=== PATIENT | male | born 1975 | race African-American/Black ===

== ENCOUNTER 2025-03-22 02:05 | Inpatient (IN) | payer OTHER, SELFPAY ==
[2025-03-21 21:45] VITALS: BP 141/89
[2025-03-21 22:07] LABS: Hematocrit 30.8 % (39.0-52.0); Hemoglobin 10.0 g/dL (13.0-18.0); Mean Corp Hgb Conc. 32.5 g/dL (33.0-37.0); Mean Corpuscular Volume 84.6 fL (80.0-94.0); Nucleated Red Blood Cells % 0 % (-); Platelet Count 310 10^3/uL (130-400); Red Cell Dist. Width 13.8 % (11.5-14.5)
[2025-03-21 22:35] LABS: ALT (SGPT) 28 U/L (0-50); AST (SGOT) 25 U/L (17-59); Albumin 3.7 g/dl (3.5-5.0); Alkaline Phosphatase 138 U/L (38-126); Blood Urea Nitrogen 26 mg/dl (9-20); Calcium 9.3 mg/dl (8.4-10.2); Carbon Dioxide 31 mmol/L (22-30); Chloride 101 mmol/L (98-107); Glucose 274 mg/dl (70-99); Potassium 4.1 mmol/L (3.5-5.1); Sodium 136 mmol/L (135-145); Total Protein 6.8 g/dl (6.3-8.2); eGFR > 60.00
--- NOTE | 2025-03-21 23:55 | ED.GENMED ---
History of Present Illness
General
Chief Complaint: Skin Problem
Source: patient
Time Seen by Provider: 03/21/25 23:23
History of Present Illness
History of Present Illness:
Note:
CHIEF COMPLAINT(S)
Swelling and potential infection of the left foot.
HISTORY OF PRESENT ILLNESS
The patient is a 49-year-old male with a history of diabetes who presented with swelling and concern of infection in the left foot. The patient reports that he has noticed a progressive worsening of swelling and a recent increase in drainage from
the left foot. He describes having a crevice and open wounds on the lateral aspect of the left foot, with the dressing showing some drainage today. The patient denies fever. He mentions that for the right foot, he has chronic wounds that heal
intermittently but have never fully resolved, with notable ulcerations on the distal lateral aspect. He has been using a silver-containing cream on the foot, which might have caused the skin to appear raw and loose. His blood glucose levels are
reported to be high on occasion, fluctuating throughout the day, typically peaking around 6 PM.
The patients sister, who works at the hospital, encouraged him to seek care. The patient manages his diabetes with insulin and wears a Freestyle Feroz sensor to monitor his glucose levels. The patient notes he has been under podiatric care at [facility] and an pelt shearer at [place], but often his primary care physician deals with his diabetes. His last x-rays were tonight for the assessment of his foot condition.
PAST MEDICAL AND SURIGICAL HISTORY
Diabetes mellitus, primarily managed by the primary care physician due to limited hours of the pelt shearer.
ALLERGIES
Shellfish allergy, specifically to cold shellfish.
SOCIAL DETERMINANTS AFFECTING HEALTH
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
MEDICATIONS
The patient uses insulin and Monjaro (likely misspelling for Mounjaro) for diabetes management.
PHYSICAL EXAM
General: Alert, no acute distress.
Skin: Bilateral foot wounds; left foot with swelling and drainage to the lateral aspect of the foot with no significant surrounding cellulitis, right foot with ulcerations medially and 2 larger ulcerations to the lateral distal aspect of the foot,
normal bilateral dorsalis pedis pulses
Cardiovascular: Good blood supply to the feet. No respiratory distress
Psychiatric: Cooperative, appropriate mood & affect.
Neuro exam: Cranial nerves intact no focal motor deficits
PROBLEM LIST
- Acute: Swelling and potential infection of the left foot.
- Underlying diabetic foot ulceration.
- Acute hyperglycemia
PLAN
- Obtain x-rays of both feet to evaluate for potential bone infection.
- Admission for hospital observation and management, including IV antibiotics to address potential infection and reduce the risk of progression to osteomyelitis.
- Consult wound management and podiatry to determine appropriate wound care strategies.
- Continue monitoring blood glucose levels and adjust insulin therapy as needed.
- Consider long-term strategies in collaboration with podiatry and endocrinology to address foot care and diabetes management.
DIFFERENTIAL DIAGNOSIS
The Differential Diagnosis includes, in no particular order and is not limited to:
- Diabetic foot ulcers
- Cellulitis
- Osteomyelitis
- Peripheral vascular disease
- Charcot foot
- Neuropathic ulcer
- Venous stasis ulcer
- Contact dermatitis from topical treatments
- Lymphedema
- Gout
Disposition:
SUMMARY OF ENCOUNTER
The patient, a 49-year-old male with insulin-dependent diabetes, presented to the emergency department with worsening swelling of the left foot and drainage indicative of a potential diabetic foot infection. Laboratory analysis showed leukocytosis
with a white blood cell count of 13,000 and hyperglycemia with a blood glucose level of 274. Hemoglobin was recorded at 10. Chemistry panel displayed normal creatinine and liver function tests. A foot X-ray showed soft tissue swelling but no bony
changes. The patient was treated with broad-spectrum antibiotics to cover potential infectious agents and monitored with IV fluids. The patient will require further evaluation by podiatry and likely wound care services. Hospital admission was chosen
for closer observation and administration of IV antibiotics.
DISPOSITION
Admit for IV antibiotics.
ASSESSMENT
The patient presents with potential diabetic foot infection, evidenced by left foot swelling and drainage. The risk of the condition progressing to osteomyelitis is being evaluated through further imaging if required.
MANAGEMENT OF THE PATIENTS CARE WAS DISCUSSED WITH
Case reviewed with hospitalists for admission and ongoing care evaluation.
PLAN
- Administer broad-spectrum IV antibiotics to cover possible bacterial infections.
- Admit the patient for monitoring and potential further imaging, such as a bone scan or MRI, to rule out osteomyelitis if clinical suspicion remains high.
INDEPENDENT REVIEW OF LABS AND INTERPRETATION OF TESTS
- My independent review of the CBC shows leukocytosis with a white cell count of 13,000.
- My independent review of the chemistry panel shows hyperglycemia with a blood glucose level of 274.
- My independent interpretation of the foot X-ray indicates soft tissue swelling with no bony changes in the left foot.
MEDICAL DECISION MAKING
- Number and Complexity of Problems Addressed: Chronic conditions affecting care [Diabetes mellitus]. Differential diagnosis includes diabetic foot ulcers, cellulitis, osteomyelitis, peripheral vascular disease, Charcot foot, neuropathic ulcer,
venous stasis ulcer, contact dermatitis from topical treatments, lymphedema, and gout.
- Data:
Category 1:
- Reviewed CBC showing leukocytosis and chemistry panel displaying hyperglycemia.
- Independently interpreted foot X-ray showing soft tissue swelling.
Category 3:
- Case management and admission discussed with hospitalists for continuous IV antibiotics and further evaluation.
- Risk: Prescription drug management was prescribed and initiated with IV antibiotics to address potential infection given the patients chronic diabetes, foot ulcerations, and potential for progression to osteomyelitis. Consideration for further
imaging if necessary to evaluate bone involvement.
DIAGNOSIS
- Diabetic foot ulcer (ICD-10: E11.621)
- Cellulitis of the left foot (ICD-10: L03.116)
- Acute hyperglycemia
Phy Exam
Physical Exam
Physical Exam:
.
Sepsis
Sepsis Screening
Sepsis Assessment: Sepsis Ruled Out
Sepsis Screen
Sepsis Screen: Sepsis Ruled Out
Date: 03/22/25
Time: 01:55
Course
Orders/Labs/Results
Orders:
Orders
03/21/25 21:50
CR Foot - Left Min 3 Views Urgent
Comment:
Reason For Exam: wound with swelling, r/o osteo
03/21/25 22:01
Complete Blood Count/With Diff Urgent
Comprehensive Metabolic Panel Urgent
Lactate Level [Lactic Acid] Urgent
03/21/25 23:56
Piperacillin/Tazo 3.375 Gram [Zosyn] 3.375 gram in 50 ml IV NOW
03/21/25 23:57
Vancomycin [Vancocin] 2,000 mg 0.9% Sodium Chloride 500 ml [Nss] 500 ml IV NOW
03/22/25 00:01
Vital Signs- Treatment ONCE
Frequency: Once
0.9% Sodium Chloride 1000 ml [Nss] 1,000 ml IV BOLUS
03/22/25 01:33
Admit/Transfer Patient As Directed
Co-Sign Provider:
Level of Care: Inpatient admission
Assign to:: Medical/Surgical
Physician / Group: [facility]
Diagnosis: diabetic foot infection
Reason for Hospitalization: foot infection
Expected length of stay greater than two midnights?: Yes
ELOS- Estimated Length of Stay in days: 2
I certify the patient meets the requirements for IP care: Yes
PRN Pain Medication Management As Directed
May give lesser potent ordered pain med per pt: Yes
preference::
Protocol:: Medication orders for pain may be administered in a
manner that supports deferring to patient preference
when the pt is:
- Requesting an ordered lesser potent pain medication.
Least to most potent pain medications are defined
as: acetaminophen < NSAID < tramadol < opioids
(morphine, oxycodone, hydromorphone).
- Requesting a lesser dose of the same medication IF
ORDERED.
- Requesting a less intrusive route of administration
if both routes are prescribed by the provider (PO <
IV).
03/22/25 01:34
Code Status As Directed
Resuscitation Status: Full Code
03/22/25 01:38
Nadolol [Corgard] 10 mg PO ONCE STA
03/22/25 01:39
0.9% Sodium Chloride 500 ml [Nss] 500 ml IV BOLUS
Abnormal Lab Results
03/21/25
22:01
WBC 13.6 H 10^3/uL
(4.8-10.8)
RBC 3.64 L 10^6/uL
(4.70-6.10)
Hgb 10.0 L g/dL
(13.0-18.0)
Hct 30.8 L %
(39.0-52.0)
MCHC 32.5 L g/dL
(33.0-37.0)
Abs Immat Gran (auto) 0.1 H 10^3/uL
(0-0.05)
Absolute Neuts (auto) 9.8 H 10^3/uL
(1.4-6.5)
Absolute Monos (auto) 1.7 H 10^3/uL
(0.1-0.6)
Lymphocytes % 14.0 L %
(20.5-51.1)
Monocytes % 12.3 H %
(1.7-9.3)
Carbon Dioxide 31 H mmol/L
(22-30)
BUN 26 H mg/dl
(9-20)
Glucose 274 H mg/dl
(70-99)
Alkaline Phosphatase 138 H U/L
(38-126)
03/21/25 22:01
03/21/25 22:01
Vital Signs
Initial and Last Documented VS:
Initial Vital Signs
Temp Pulse Resp BP Pulse Ox
98.3 F 114 20 141/89 95
03/21/25 21:45 03/21/25 21:45 03/21/25 21:45 03/21/25 21:45 03/21/25 21:45
Last Documented Vital Signs
Temp Pulse Resp BP Pulse Ox
99.1 F 114 18 173/97 99
03/22/25 00:52 03/22/25 00:12 03/22/25 00:12 03/22/25 00:07 03/22/25 00:06
*Pulse Oximetry
SaO2: 95
Oxygen Mode of Delivery: Room air
Patient hypoxic: no
*Critical Care Note
Total Time (30-74mins, 75-104mins- exclusive of procedures): Not Applicable
ED Attending Note
-
Portions of this chart may have been created with voice recognition software.� Occasional wrong word or��sound alike� substitutions may have occurred due to the inherent limitations of voice recognition software.
Discharge Plan
Departure
Patient Disposition: Admit
Date of Disposition: 03/21/25
Time of Disposition: 23:55
Admit to: Med/Surg
Presentation/result/management discussed w/ accepting MD/DO: Hospitalist
Discharge Problem:
Diabetic infection of left foot, Acute hyperglycemia, Leukocytosis, diabetic foot wounds
Prescriptions:
No Action
amlodipine 5 mg Tablet
5 mg PO DAILY
oxycodone-acetaminophen [Percocet] 5-325 mg Tablet
1 tab PO TID
losartan 100 mg Tablet
100 mg PO DAILY
Repatha Syringe 140 mg/mL Syringe
120 mg SC Q2W
Patient Comments:
The patient did show this RN the text from [facility].
Mounjaro 15 mg/0.5 mL Pen Injector
15 mg SC QWEEK
Interventions
Interventions:
*Risk Screen - Suicide Last Done: 03/21/25 21:45
*General Assessment Last Done: 03/21/25 21:45
*Neglect/Abuse Screening Last Done: 03/21/25 21:45
*ED- Fall Risk Assessment Last Done: 03/22/25 00:13
*ED COVID-19 Vaccine History Last Done: 03/22/25 00:13
Discharge Date and Time
Print Language: WOLOF
[2025-03-22] VITALS (9 sets, daily range): BP systolic 124–173; BP diastolic 72–97; BMI 26.0
[2025-03-22] MEDS: NSS 1000 IV ×2 (00:24→04:31)
[2025-03-22] MEDS: ZOSYN 50 IV (00:25)
--- NOTE | 2025-03-22 01:12 | HPS.HSE ---
Family Physician
-
Family Physician: NOT KNOW UNKNOWN - PT DOES
Chief Complaint
-
Foot infection
History of Present Illness
This is a [id number] male with past medical history significant for insulin-dependent diabetes on Mounjaro and short acting insulin, hypertension, hyperlipidemia and chronic tachycardia syndrome who presents to the emergency department with
swelling in the left foot concerning for an infection.
Patient reports intermittent blisters in his foot and occasional swelling due to amlodipine. He states that he really did not notice any changes until about 2 days ago. He started having some drainage from the blisters in his left foot. However
today he noticed significant swelling and redness.
He denies any known injury. He does have diabetic neuropathy and follows with podiatry at [facility] but he only sees residents there. He is primary care physician takes care of his diabetes.
He denies any fevers. He reports glucose levels have been more elevated in the last 2 days.
He has been using a silver containing cream on the foot.
In the emergency department he was hypertensive, afebrile and tachycardic to 114. Temperature was 98.1 was satting 98% on room air.
WBC was 13.6, hemoglobin 10 platelets 310. Electrolytes were normal. BUN/creatinine were normal. Glucose was 274.
X-ray of the left foot shows soft tissue swelling without changes consistent with osteomyelitis
Medical History
Past Medical History
Past Medical History: Reports HTN, Hypercholesterolemia and IDDM
Past Surgical History: Reports None
Social History
Tobacco: Smoker
Alcohol: Occasional
Family History
Family History: Not pertinent
Allergies / Home Medications
Allergies reflects when Allergies were last updated in [facility].
Home Medications with original date entered in [facility]
Allergy/Medication List:
Allergies
Allergy/AdvReac Type Severity Reaction Status Date / Time
shellfish derived Allergy Tongue Verified 03/21/25 21:45
Swelling
Home Medications
amlodipine 5 mg tablet 5 mg PO DAILY 03/22/25
evolocumab 140 mg/mL subcutaneous syringe (Repatha Syringe) 120 mg SC Q2W 03/22/25
losartan 100 mg tablet 100 mg PO DAILY 03/22/25
oxycodone-acetaminophen 5 mg-325 mg tablet (Percocet) 1 tab PO TID 03/22/25
tirzepatide 15 mg/0.5 mL subcutaneous pen injector (Mounjaro) 15 mg SC QWEEK 03/22/25
Review of Systems
-
Constitutional: Reports No Symptoms
EENT: Reports No Symptoms
Respiratory: Reports No Symptoms
Cardiac: Reports No Symptoms
Abdomen/GI: Reports No Symptoms
: Reports No Symptoms
Musculoskeletal: Reports No Symptoms
Skin: Reports Rash
Neurological: Reports No Symptoms
Endocrine: Reports No Symptoms
Hematologic/Lymphatic: Reports No Symptoms
Psych: Reports No Symptoms
Physical Exam
Vital Signs
Vital Signs
Temp Pulse Resp BP Pulse Ox
99.1 F 114 18 173/97 99
03/22/25 00:52 03/22/25 00:12 03/22/25 00:12 03/22/25 00:07 03/22/25 00:06
Physical Exam
General: Well Developed, Well Nourished and No Apparent Distress
HEENT: NormoCephalic, Moist mucous membranes and Atraumatic
Respiratory: Clear
Cardiac: S1/S2 and Tachycardia; No Murmur or Rub
GI: Soft, Non Tender, Non Distended and Normal Bowel Sounds; No Organomegaly
Rectal: Deferred by Provider
Musculoskeletal: No Clubbing, No Cyanosis, No Edema and Other (Lateral left foot swelling erythema with some drainage of pus at the opening of the wound. There is no tracking. There is mild tenderness to palpation.)
Skin: No Rash
Neuro: AO x 3 and Nonfocal/grossly intact
Psych: Calm
Laboratory Results
-
08/29/25 22:01
03/21/25 22:
Laboratory Results
Lactic Acid 1.6 mmol/L (0.7-2.0) 03/21/25 22:
Total Bilirubin 0.6 mg/dl (0.2-1.3) 03/21/25 22:
AST 25 U/L (17-59) 03/21/25 22:
ALT 28 U/L (0-50) 03/21/25 22:
Alkaline Phosphatase 138 U/L (38-126) H 03/21/25 22:
Data Reviewed
-
Diagnostic Radiology: Report Reviewed by me
Lab Data: Labs Reviewed by me
Old Records: Reviewed
Impression/Plan
-
IMPRESSION:
49-year-old male with diabetes here with diabetic foot infection. Chronic tachycardia and nonseptic at this time. No DKA elevated blood blood glucose to 200s. X-ray without osteomyelitis. No foreign body. Normal vascular examination.
PLAN:
Diabetic Foot infection - No hx of recent abx use or prolonged hospitalizations. No known MRSA hx
- admit to med/surg
- IV vanc + unasyn
- pain control
- unlikely osteo based on xray, check esr/crp
- podiatry consultation
- ID consultation
DM II - Hyperglycemia without DKA. On Mounjaro and sliding scale insulin
- continue insulin aspart 10 tidac
- moderate sliding scale insulin
- check a1c
- IV fluids for now
Tachycardia - reports hx of chronic tachycardia on nadolol 20 daily, ran out 2 days ago, possibly rebound tachycardia
- IV fluids
- restart nadolol
- check for LE dvt
DVT PPX - lovenox sq
Code status - full Code
[2025-03-22] MEDS: VANCOCIN 540 MG IV (01:25)
[2025-03-22] MEDS: CORGARD 10 MG PO (01:50)
[2025-03-22] MEDS: NSS 500 IV (01:52)
[2025-03-22] MEDS: UNASYN IV ×4 (06:48→23:29)
[2025-03-22 07:01] LABS: Hematocrit 26.9 % (39.0-52.0); Hemoglobin 8.7 g/dL (13.0-18.0); Mean Corp Hgb Conc. 32.3 g/dL (33.0-37.0); Mean Corpuscular Volume 84.6 fL (80.0-94.0); Platelet Count 291 10^3/uL (130-400); Red Cell Dist. Width 13.7 % (11.5-14.5)
[2025-03-22 07:13] LABS: Blood Urea Nitrogen 17 mg/dl (9-20); Calcium 8.0 mg/dl (8.4-10.2); Carbon Dioxide 30 mmol/L (22-30); Chloride 108 mmol/L (98-107); Estimated Creatinine Clearance > 125 ml/min; Glucose 184 mg/dl (70-99); Potassium 4.0 mmol/L (3.5-5.1); Sodium 137 mmol/L (135-145); eGFR > 60.00
[2025-03-22 07:32] LABS: D-Dimer 0.77 ug/mlFEU (0.00-0.50)
--- NOTE | 2025-03-22 08:48 | PHA.VAN.IN ---
Assessment
- Assessment
Renal Function: Appears similar to baseline
Concomitant Antimicrobials: AMPICILLIN/SULBACTAM
AUC Dosing Plan
- Dosing Variables
Dosing Weight (kg): 86.8
Dosing CrCl (ml/min): >125
Vd coefficient (L/kg): 0.7
- Empiric Dosing
Initial / Loading Dose: VANCO 2000MG
Maintenance Regimen: VANCO 1500MG Q12H
Estimated AUC (mcg*h/mL): 494
Estimated Peak (mcg*h/mL): 34.0
Estimated Trough (mcg/ml): 10.9
Estimated Half Life (H): 6.4
- Monitoring
No levels ordered at this time: CONSIDER LEVEL PRIOR TO 4TH MAINTENANCE DOSE
Pharmacokinetics Vancomycin I
- -
Patient Age: 49
Patient Sex: Male
Vancomycin Day #: 1
Indication: Skin And Soft Tissue
Requesting Provider: DR. JONES
Height / Weight:
Height 6 ft
Actual Weight 86.8 kg
Pertinent Past Medical History: DM
- Vital Signs / Lab Results
Temp Pulse Resp BP Pulse Ox
98.3 F 89 16 145/89 98
03/22/25 08:39 03/22/25 08:39 03/22/25 08:39 03/22/25 08:39 03/22/25 08:39
Lab Results - Hematology
03/21/25 03/22/25
22:01 06:48
WBC 13.6 H 10.4
Lab Results - Chemistry
03/21/25 03/22/25
22:01 06:48
BUN 26 H 17
Creatinine 1.2 0.8
Estimated Creat Clear > 125
Albumin 3.7
03/21/25
22:01
Lactic Acid 1.6
[2025-03-22] MEDS: COZAAR 100 MG PO (09:23)
[2025-03-22] MEDS: CORGARD 20 MG PO (09:23)
[2025-03-22] MEDS: NORVASC 5 MG PO (09:24)
[2025-03-22 09:36] LABS: Glucose - Point of Care 154 mg/dl (70-99)
[2025-03-22] MEDS: NOVOLOG FLEXPEN 8 UNITS SC ×3 (09:38→17:58)
[2025-03-22] MEDS: NOVOLOG FLEXPEN-MODERATE RESISTANCE 1 UNITS SC ×2 (09:38→12:37)
[2025-03-22] MEDS: VANCOCIN 530 MG IV ×2 (09:44→17:36)
--- NOTE | 2025-03-22 09:47 | EDRN ---
Dr. Francis Inf Disease in room w/pt at this time.
--- NOTE | 2025-03-22 10:09 | CON.ID ---
Consultation
-
Date/Time Consultation Requested: 03/22/2025 0351
Date/Time Consultation Performed: 03/22/2025 0957
Requesting Provider: Dr. El
Performing Provider: Dr. Francis
Reason for Consultation: Left diabetic foot infection
Chief Complaint / Past History
History of Present Illness
Juan Murry is a 49-year-old man with a significant past medical history of diabetes mellitus with neuropathy being evaluated regarding a left foot wound. History is obtained from chart review, along with patient interview.
The patient reports that he has had issues with foot wounds, and scaly skin in the past, and occasionally picks off the skin. Approximately 1-1/2 weeks ago he changed lotions to an OTC 'silver-cream' for moisturizing. He notes that approximately 2
days ago he developed a wound on the lateral aspect of his left foot (approximately base of fifth met), and it has been draining clear drainage. He notes mild discomfort, but does not feel a lot of pain secondary to underlying neuropathy. He
denies any significant pus or spreading erythema. He does admit to some left groin discomfort and swelling. He also notes he has been dealing with a right foot wound also. He follows with Podiatry at an outside facility. At the advice of his
family, he presented to the ER for further evaluation.
Past History
Additional Past Medical History:
DM with neuropathy (AcC ~ 8-9)
HTN
HLD
Additional Past Surgical History:
Right AC joint reconstruction
Testicular torsion
Femur surgery
Allergy History:
shellfish derived Allergy (Verified 03/21/25 21:45)
Tongue Swelling
Medications Reviewed: Yes
Current Antibiotics:
Unasyn 3 gm IV q.6 hours
Vancomycin
Social History
Tobacco: Non-Smoker
Alcohol: Occasional
Drug: None
Personal:
Living: With Family
Employment: Employed
Family History
Family History: Not Pertinent
Review of Systems
Vital Signs
Temp Pulse Resp BP Pulse Ox
98.8 F 79 16 129/76 97
03/22/25 09:20 03/22/25 09:24 03/22/25 09:20 03/22/25 09:24 03/22/25 09:20
Physical Exam
Physical Exam
Constitutional: No Acute Distress, Well Developed, Comfortable and Non-toxic
Head: Normocephalic
Eyes: Pupils Equal, Pupils Round, No Conjunctival Hemorrhage and Sclera Anicteric
Oral: No Thrush and No Ulcers
Cardiovascular: S1/S2; Negative S3/S4
Pulmonary: Clear; Negative Wheezes, Rales or Rhonchi
Gastrointestinal: Soft, Non Tender, Non Distended and Normal Bowel Sounds
Extremities: Other (B/L feet with crusting and superficial desquamation.); Negative Edema, Cyanosis or Erythema
Wound: Other (Left foot with lateral wound. Seropurulent drainage expressible. Right foot with lateral plantar wound with granulation tissue.)
Neurological: Awake and Alert
Psychological: Calm
Lab / Diagnostic Study Results
03/22/25 06:48
03/22/25 06:48
Abs Immat Gran (auto) 0.1 10^3/uL (0-0.05) H 03/21/25 22:01
Absolute Neuts (auto) 9.8 10^3/uL (1.4-6.5) H 03/21/25 22:01
Absolute Lymphs (auto) 1.9 10^3/uL (1.2-3.4) 03/21/25 22:01
Absolute Monos (auto) 1.7 10^3/uL (0.1-0.6) H 03/21/25 22:01
Absolute Basos (auto) 0.1 10^3/uL (0-0.2) 03/21/25 22:01
Immature Gran % 0.4 % (0-0.5) 03/21/25 22:01
Neutrophils % 71.9 % (42.2-75.2) 03/21/25 22:
Lymphocytes % 14.0 % (20.5-51.1) L 03/21/25 22:
Monocytes % 12.3 % (1.7-9.3) H 03/21/25 22:01
Eosinophils % 1.0 % (0-6) 03/21/25 22:
Basophils % 0.4 % (0-2) 03/21/25 22:
ESR 83 mm/hour (0-20) H 03/22/25 06:48
Lactic Acid 1.6 mmol/L (0.7-2.0) 03/21/25 22:
Microbiology Results
Assessment / Plan
Left draining foot wound
Diabetic foot wounds (B/L)
Leukocytosis
Anemia
Elevated ESR
DM with neuropathy
HTN
HLD
Recommendations:
Continue empiric unasyn and vanco.
I have obtained a wound culture of the left foot drainage.
Check MRI to assess for osteomyelitis given elevated ESR / CRP
Tight glycemic control for optimal leukocyte function.
Follow white count and temperature curve.
Further recommendations as additional data is returned.
Care Review
Plan reviewed with: Nurse
[2025-03-22 10:19] LABS: Glycohemoglobin (HgbA1c) 9.7 % (4.0-5.6)
--- NOTE | 2025-03-22 10:51 | EDRN ---
L foot wound culture sent to [facility] at this time
[2025-03-22] MEDS: ROXICODONE 5 MG PO ×2 (11:52→19:25)
[2025-03-22 12:01] LABS: Glucose - Point of Care 169 mg/dl (70-99)
--- NOTE | 2025-03-22 12:31 | PTCARENOTE ---
Patient arrived from ED via stretcher. IV Vancomycin infusing. OOB independently from stretcher to bed. AOO x 3. VSS. Patient complains of 6/10 left foot pain--PRN oxy administered for pain management. Wound care completed by this RN. Belongings
accounted for, including wallet, cell phone, keno clerk, clothing and glasses. Patient refused sending wallet to security. Patient oriented to room. Bed in lowest position. Call [facility] and personal belongings within reach.
--- NOTE | 2025-03-22 12:50 | W.PN.SURGUPD ---
Surgical Update
Surgical Update
49 yo M with uncontrolled diabetes presents with worsening of left foot wound and infection
-Continue IV antibiotics per ID recs
-Radiographs show no evidence of osteomyelitis or soft tissue emphysema
-Recommend obtaining left foot MRI
-Continue local wound care
-Final recommendations pending MRI findings
--- NOTE | 2025-03-22 14:27 | W.PN.HOSP.TC ---
Addendum entered and electronically signed by Anel Lugo MD 03/22/25 15:01:
Attending�addendum:
I�saw�and�evaluated�the�patient.�I�reviewed�the�resident�s�note�and�agree�with�findings�and�plan�as�documented�in�the�resident�s�note.��
�patient seen and examined at bedside, denies any chest pain or shortness of breath, no abdominal pain, no nausea, no vomiting, no diarrhea or constipation.
Physical�exam:
GENERAL : Patient is awake, alert, oriented x3
HEENT: Nonicteric sclerae, PERRLA, EOMI. Oropharynx clear. Moist mucous membranes. Conjunctivae appear well perfused.
CHEST: Chest wall is nontender.
HEART: Regular rate and rhythm without murmurs.
LUNGS: Clear to auscultation bilaterally.
ABDOMEN: Soft, positive bowel sounds, nontender, no organomegaly.
RECTAL: Deferred.
Musculoskeletal: Left foot dressed.
NEUROLOGIC: Cranial nerves II-XII intact without motor/sensory deficit.
�
Assessment/plan:
Diabetic left foot infection.
Continue antibiotic in form of vancomycin and Unasyn.
Pending MRI left foot
History�of�diabetes�mellitus
Continue�home�medication
Insulin�sliding�scale
Diabetic�diet
Hemoglobin A1c 9.7
History�of�hypertension
Continue home meds
History of hyperlipidemia
Continue�repatha
History of sinus tachycardia
Continue with nadolol.
Abnormal labs
�
CODE STATUS:�Full�code
DVT�prophylaxis:�Lovenox
Diet:�DM�diet
Family�communication: Discussed with family at bedside
Disposition: MRI foot pending.
Total�time�spent�on�today�s�encounter�was�65�minutes�which�included�time�spent�in�counseling�the�patient/family�regarding�diagnosis�and�treatment�plan�as�listed�above,�goals�of�care,�and�symptom�management.�Case�was�discussed�with�nursing�staff,�spec
ialists,�and�care�coordinators/case�management.�All�labs�and�imaging�personally�reviewed�by�me.�Remainder�the�time�spent�in�detailed�review�of�previous�records,�lab�data,�imaging,�and�other�medical�provider�documentation.
�
�
Total�time�spent�on�today�s�encounter�was�65�minutes�which�included�time�spent�in�counseling�the�patient/family�regarding�diagnosis�and�treatment�plan�as�listed�above,�goals�of�care,�and�symptom�management.�Case�was�discussed�with�nursing�staff,�spec
ialists,�and�care�coordinators/case�management.�All�labs�and�imaging�personally�reviewed�by�me.�Remainder�the�time�spent�in�detailed�review�of�previous�records,�lab�data,�imaging,�and�other�medical�provider�documentation.
Original Note:
Today's Communication/Plan
-
Left foot MRI
Continue Unasyn and vancomycin per ID
Cultures pending
Assessment / Plan
Assessment / Plan
49-year-old male presenting to the ED with infected diabetic foot infection.
Diabetic foot infection
-- Elevated WBC on admission 13.6 - now resolved
-- Admit to MedSurg
-- Continue vancomycin and Unasyn per ID
-- Cultures pending
-- Pain control
-- Left lower extremity ultrasound no DVT
-- Unlikely osteomyelitis based on x-ray, left foot MRI pending per podiatry
-- Podiatry and ID appreciated
Type 2 diabetes
-- Continue insulin aspart 8, 3 times daily AC
-- Sliding scale insulin
-- On tirzepatide at home
-- Hemoglobin A1c 9.7
Tachycardia
-- Chronic tachycardia on nadolol for treatment - ran out 2 days ago
-- Restart home nadolol
Hypertension
-- Continue home amlodipine 5 and losartan 100
Hyperlipidemia
-- On Repatha
DVT Lovenox
Full code
Anticipated Discharge: 24 - 48 hours
Subjective/Interval History
-
Date of Service: March 22, 2025
No complaints. Overall feels well.
Objective Data
-
Labs:
Laboratory Results
03/22/25
06:48
WBC 10.4
Hgb 8.7 L
Hct 26.9 L
Plt Count 291
Sodium 137
Potassium 4.0
Chloride 108 H
Carbon Dioxide 30
BUN 17
Creatinine 0.8
Glucose 184 H
Calcium 8.0 L
Vital Signs:
Vital Signs
Temp Pulse Resp BP Pulse Ox
98.8 F 79 16 129/76 97
03/22/25 09:20 03/22/25 09:24 03/22/25 09:20 03/22/25 09:24 03/22/25 09:20
Review of Systems
-
History Source: Patient
Constitutional: Reports No Symptoms
EENT: Reports No Symptoms Reported
Respiratory: Reports No Symptoms
Cardiac: Reports No Symptoms
Abdomen/GI: Reports No Symptoms
Skin: Reports No Symptoms
Neuro: Reports No Symptoms
Physical Exam
-
General: No Apparent Distress and Comfortable
HEENT: Normocephalic
Respiratory: Clear to Auscultation
Cardiac: Regular Rhythm and S1/S2
GI: Soft, Nontender, Nondistended and Normal Bowel Sounds
Musculoskeletal: No Cyanosis and No Edema
Skin: Warm and Dry
Neuro: AO x 3
Psych: Calm
[2025-03-22] MEDS: LOVENOX 40 MG SC (17:34)
[2025-03-22 17:57] LABS: Glucose - Point of Care 220 mg/dl (70-99)
[2025-03-22] MEDS: NOVOLOG FLEXPEN-MODERATE RESISTANCE 3 UNITS SC (17:58)
[2025-03-22] MEDS: TYLENOL 650 MG PO (20:49)
[2025-03-22 21:01] LABS: Glucose - Point of Care 284 mg/dl (70-99)
[2025-03-23] MEDS: ROXICODONE 5 MG PO ×3 (01:31→20:13)
[2025-03-23] MEDS: UNASYN IV ×3 (05:00→17:36)
[2025-03-23] MEDS: VANCOCIN 530 MG IV ×2 (05:39→17:36)
[2025-03-23 07:32] VITALS: BP 140/81
[2025-03-23 07:49] LABS: Hematocrit 27.0 % (39.0-52.0); Hemoglobin 8.7 g/dL (13.0-18.0); Mean Corp Hgb Conc. 32.2 g/dL (33.0-37.0); Mean Corpuscular Volume 84.4 fL (80.0-94.0); Platelet Count 316 10^3/uL (130-400); Red Cell Dist. Width 13.7 % (11.5-14.5)
[2025-03-23 08:04] LABS: Glucose - Point of Care 162 mg/dl (70-99)
[2025-03-23 08:17] LABS: ALT (SGPT) 29 U/L (0-50); AST (SGOT) 28 U/L (17-59); Albumin 2.9 g/dl (3.5-5.0); Alkaline Phosphatase 128 U/L (38-126); Blood Urea Nitrogen 10 mg/dl (9-20); Calcium 8.2 mg/dl (8.4-10.2); Carbon Dioxide 29 mmol/L (22-30); Chloride 106 mmol/L (98-107); Estimated Creatinine Clearance > 125 ml/min; Glucose 170 mg/dl (70-99); Potassium 4.0 mmol/L (3.5-5.1); Sodium 137 mmol/L (135-145); Total Protein 5.5 g/dl (6.3-8.2); eGFR > 60.00
--- NOTE | 2025-03-23 08:37 | PHA.VAN.FU ---
Vancomycin Assessment / Plan
- Assessment
Renal Function: SCR Decreasing
WBC's are: WNL
In the past 24 hrs, patient has been: Afebrile
Concomitant Antimicrobials: AMPICILLIN/SULBACTAM
- Dosing Plan
Continue: VANCO 1500MG Q12H
- Monitoring Plan
Peak Level: 03/23 @2100
Trough Level: 03/24 @0530
- Follow Up
Pharmacy will continue to follow.
Vancomycin Follow UP
- -
Patient Age: 49
Patient Sex: Male
Vancomycin Day #: 2
Indication: Skin And Soft Tissue
Requesting Provider: DR. JONES
Height / Weight:
Height 6 ft
Actual Weight 86.8 kg
Pertinent Past Medical History: DM
- Vital Signs / Lab Results
Temp Pulse Resp BP Pulse Ox
98.6 F 83 16 140/81 97
03/23/25 07:32 03/23/25 07:32 03/23/25 07:32 03/23/25 07:32 03/23/25 07:32
Lab Results - Hematology
03/21/25 03/22/25 03/23/25
22:01 06:48 07:28
WBC 13.6 H 10.4 7.7
Lab Results - Chemistry
03/21/25 03/22/25 03/23/25
22:01 06:48 07:28
BUN 26 H 17 10
Creatinine 1.2 0.8 0.6 L
Estimated Creat Clear > 125 > 125
Albumin 3.7 2.9 L
03/21/25
22:01
Lactic Acid 1.6
Microbiology Results
03/22/25 10:42 Gram Stain - Preliminary
Foot - Left
[2025-03-23] MEDS: NOVOLOG FLEXPEN 8 UNITS SC (10:07)
[2025-03-23] MEDS: NOVOLOG FLEXPEN-MODERATE RESISTANCE 1 UNITS SC (10:07)
[2025-03-23] MEDS: CORGARD 20 MG PO (10:15)
[2025-03-23] MEDS: NORVASC 5 MG PO (10:15)
[2025-03-23] MEDS: COZAAR 100 MG PO (10:15)
--- NOTE | 2025-03-23 11:03 | W.PN.HOSP.TC ---
Addendum entered and electronically signed by Alice Black MD 03/23/25 14:28:
Seen and examined the patient separately. Agree with the plan put forth by the resident except for changes in my documentation
49-year-old male with diabetic foot infection
Ultrasound of the lower extremity-no evidence of DVT
X-ray of the foot-soft tissue swelling of the lateral midfoot. No evidence of osteomyelitis
MRI-There is subcutaneous edema at the level of the lateral midfoot with overlying soft tissue wound, suggesting cellulitis. No loculated fluid collections.No overt MR evidence for osteomyelitis or septic arthritis.
Lateral foot wounds noted. No discharge
Cardiovascular stenosis appreciated
Chest clear to auscultation
# Diabetic foot infection
Gram stain, gram-positive cocci
Continue vancomycin and Unasyn
MRI of the foot-as above, no osteomyelitis
Podiatry and infectious disease following
# Diabetes type 2 hemoglobin A1c-9.7
Lantus insulin 12 units daily with aspart 4 units AC started. Also started on NovoLog metformin 500 mg twice daily
Sliding scale coverage and Accu-Cheks
Also on tirzepatide as outpatient
# Anemia-check iron studies
# Hypertension-continue Norvasc, losartan, nadolol
# History of tachycardia-chronic on nadolol as outpatient ran out 2 days ago. Restarted
# Hyperlipidemia-on Repatha as outpatient
# Hypoalbuminemia
# DVT prophylaxis-Lovenox
# Full code
Part of this note was created using voice recognition system. Occasional wrong word or��sound alike� substitutions may have inadvertently occurred due to the inherent limitations of voice recognition software. If noted kindly bring it to my
attention for correction.
Original Note:
Today's Communication/Plan
-
Adjust insulin
Continue antibiotics per ID
Appreciate podietry and ID
Assessment / Plan
Assessment / Plan
49-year-old male presenting to the ED with infected diabetic foot infection.
Imaging:
MRI 03/23/25:
There is subcutaneous edema at the level of the lateral midfoot with overlying soft tissue wound, suggesting cellulitis. No loculated fluid collections.
No overt MR evidence for osteomyelitis or septic arthritis.
Plan:
Diabetic foot infection
-- Elevated WBC on admission 13.6 - now resolved
-- Admit to MedSurg
-- Continue vancomycin and Unasyn per ID
-- Cultures Staph aureus - sensitivities pending
-- Pain control
-- Left lower extremity ultrasound no DVT
-- Unlikely osteomyelitis based on x-ray, left foot MRI revealed no osteomyelitics
-- Podiatry and ID appreciated
Type 2 diabetes
-- Continue insulin aspart 8, 3 times daily AC -> adjust to glargine 12 daily, 4 aspart AC, and metformin 500 BID
-- Diabetic nurse education and CM consult for insulin pricing
-- Sliding scale insulin
-- On tirzepatide at home
-- Hemoglobin A1c 9.7
Tachycardia
-- Chronic tachycardia on nadolol for treatment - ran out 2 days ago
-- Restart home nadolol
Hypertension
-- Continue home amlodipine 5 and losartan 100
Hyperlipidemia
-- On Repatha
DVT Lovenox
Full code
Anticipated Discharge: Within 24 hours
Subjective/Interval History
-
Date of Service: March 23, 2025
Sleepy just waking up. No complaints outside of foot pain.
Objective Data
-
Labs:
Laboratory Results
03/23/25
07:28
WBC 7.7
Hgb 8.7 L
Hct 27.0 L
Plt Count 316
Sodium 137
Potassium 4.0
Chloride 106
Carbon Dioxide 29
BUN 10
Creatinine 0.6 L
Glucose 170 H
Calcium 8.2 L
Total Bilirubin 0.3
AST 28
ALT 29
Alkaline Phosphatase 128 H
Vital Signs:
Vital Signs
Temp Pulse Resp BP Pulse Ox
98.6 F 83 16 140/81 97
03/23/25 07:32 03/23/25 07:32 03/23/25 07:32 03/23/25 07:32 03/23/25 07:32
I&O
03/22/25 03/23/25 03/24/25
06:59 06:59 06:59
Intake Total 1480 / 1960 480 / 480
Output Total 1350 / 1350
Balance 1480 / 610 -870 / -870
Review of Systems
-
History Source: Patient
Respiratory: Reports No Symptoms
Cardiac: Reports No Symptoms
Abdomen/GI: Reports No Symptoms
Musculoskeletal: Reports Other (left foot pain )
Neuro: Reports No Symptoms
Physical Exam
-
General: Comfortable
HEENT: Normocephalic
Respiratory: Clear to Auscultation
Cardiac: Regular Rhythm and S1/S2
GI: Soft, Nontender, Nondistended and Normal Bowel Sounds
Musculoskeletal: No Cyanosis, No Edema and Other (Left foot in dressings )
Skin: Warm and Dry
Neuro: AO x 3
Psych: Calm
[2025-03-23 11:17] LABS: Vitamin D, 25-OH*** 39.6 ng/mL (30-80)
[2025-03-23 13:13] LABS: Glucose - Point of Care 142 mg/dl (70-99)
[2025-03-23] MEDS: NOVOLOG FLEXPEN-MODERATE RESISTANCE SC (13:16)
[2025-03-23] MEDS: NOVOLOG vial SC (13:16)
[2025-03-23 14:18] LABS: Glucose - Point of Care 139 mg/dl (70-99)
[2025-03-23 15:17] LABS: Iron 32 ug/dl (49-181)
[2025-03-23 15:25] VITALS: BP 137/80
[2025-03-23 15:26] LABS: Total Iron Binding Capacity 233 ug/dl (261-462)
[2025-03-23 15:54] LABS: Ferritin 79.8 ng/ml (17.9-464.0)
[2025-03-23 16:08] LABS: Vitamin B12 366 pg/ml (239-931)
[2025-03-23 17:14] LABS: Glucose - Point of Care 368 mg/dl (70-99)
[2025-03-23] MEDS: NOVOLOG FLEXPEN-MODERATE RESISTANCE 9 UNITS SC (17:32)
[2025-03-23] MEDS: NOVOLOG vial 4 UNITS SC (17:34)
[2025-03-23] MEDS: GLUCOPHAGE 500 MG PO (17:35)
[2025-03-23] MEDS: LOVENOX 40 MG SC (17:35)
[2025-03-23] MEDS: TYLENOL 650 MG PO (20:07)
[2025-03-23 22:29] LABS: Glucose - Point of Care 107 mg/dl (70-99)
[2025-03-23 23:52] VITALS: BP 155/93
[2025-03-24] MEDS: TYLENOL 650 MG PO ×3 (00:29→21:36)
[2025-03-24] MEDS: ROXICODONE 5 MG PO ×3 (00:29→21:36)
[2025-03-24] MEDS: UNASYN IV ×3 (00:30→14:31)
[2025-03-24] MEDS: VANCOCIN 530 MG IV (05:54)
[2025-03-24 06:16] LABS: Hematocrit 28.0 % (39.0-52.0); Hemoglobin 9.1 g/dL (13.0-18.0); Mean Corp Hgb Conc. 32.5 g/dL (33.0-37.0); Mean Corpuscular Volume 84.3 fL (80.0-94.0); Platelet Count 386 10^3/uL (130-400); Red Cell Dist. Width 13.6 % (11.5-14.5)
[2025-03-24 06:34] LABS: Blood Urea Nitrogen 11 mg/dl (9-20); Calcium 9.4 mg/dl (8.4-10.2); Carbon Dioxide 31 mmol/L (22-30); Chloride 104 mmol/L (98-107); Estimated Creatinine Clearance 111 ml/min; Glucose 273 mg/dl (70-99); Potassium 4.3 mmol/L (3.5-5.1); Sodium 138 mmol/L (135-145); eGFR > 60.00
[2025-03-24 07:35] VITALS: BP 123/76
[2025-03-24 07:48] LABS: Glucose - Point of Care 215 mg/dl (70-99)
[2025-03-24] MEDS: NOVOLOG FLEXPEN-MODERATE RESISTANCE 3 UNITS SC ×2 (07:49→17:10)
[2025-03-24] MEDS: LANTUS 0.12 UNITS SC (07:50)
[2025-03-24] MEDS: COZAAR 100 MG PO (07:53)
[2025-03-24] MEDS: NORVASC 5 MG PO (07:53)
[2025-03-24] MEDS: CORGARD 20 MG PO (07:54)
[2025-03-24] MEDS: NOVOLOG vial 4 UNITS SC (07:57)
[2025-03-24] MEDS: GLUCOPHAGE 500 MG PO ×2 (08:03→17:11)
[2025-03-24] MEDS: NOVOLOG FLEXPEN SC (08:09)
--- NOTE | 2025-03-24 08:41 | W.PN.HOSP.TC ---
Today's Communication/Plan
-
Awaiting sensitivities for cultures
Continue antibiotics per ID
Assessment / Plan
Assessment / Plan
49-year-old male presenting to the ED with infected diabetic foot infection.
Imaging:
MRI 03/23/25:
There is subcutaneous edema at the level of the lateral midfoot with overlying soft tissue wound, suggesting cellulitis. No loculated fluid collections.
No overt MR evidence for osteomyelitis or septic arthritis.
Plan:
Diabetic foot infection
-- Elevated WBC on admission 13.6 - now resolved
-- Admit to MedSurg
-- Continue vancomycin and Unasyn per ID
-- Cultures Staph aureus -awaiting sensitivities
-- Pain control
-- Left lower extremity ultrasound no DVT
-- Unlikely osteomyelitis based on x-ray, left foot MRI revealed no osteomyelitics
-- Podiatry and ID appreciated
Type 2 diabetes
-- Continue insulin aspart 8, 3 times daily AC -> adjust to glargine 12 daily, 4 aspart AC, and metformin 500 BID
-- Diabetic nurse education and CM consult for insulin pricing -lispro and Humalog are covered through patient's insurance.
-- Sliding scale insulin
-- On tirzepatide at home
-- Hemoglobin A1c 9.7
Tachycardia
-- Chronic tachycardia on nadolol for treatment - ran out 2 days ago
-- Restart home nadolol
Hypertension
-- Continue home amlodipine 5 and losartan 100
Hyperlipidemia
-- On Repatha
DVT Lovenox
Full code
Anticipated Discharge: 24 - 48 hours
Subjective/Interval History
-
Date of Service: March 24, 2025
Overall feels well. No complaints outside of foot pain.
Objective Data
-
Labs:
Laboratory Results
03/24/25
05:37
WBC 8.2
Hgb 9.1 L
Hct 28.0 L
Plt Count 386 D
Sodium 138
Potassium 4.3
Chloride 104
Carbon Dioxide 31 H
BUN 11
Creatinine 0.9
Glucose 273 H
Calcium 9.4
Vital Signs:
Vital Signs
Temp Pulse Resp BP Pulse Ox
98.1 F 78 16 123/76 95
03/24/25 07:35 03/24/25 07:35 03/24/25 07:35 03/24/25 07:35 03/24/25 07:35
I&O
03/23/25 03/24/25 03/25/25
06:59 06:59 06:59
Intake Total 1480 / 1960 480 / 480
Output Total 2350 / 2350
Balance 1480 / 610 -1870 / -1870
Review of Systems
-
History Source: Patient
EENT: Reports No Symptoms Reported
Respiratory: Reports No Symptoms
Cardiac: Reports No Symptoms
Abdomen/GI: Reports No Symptoms
Musculoskeletal: Reports Other (Left foot pain)
Neuro: Reports No Symptoms
Physical Exam
-
General: No Apparent Distress and Comfortable
Respiratory: Clear to Auscultation
Cardiac: Regular Rhythm and S1/S2
GI: Soft, Nontender, Nondistended and Normal Bowel Sounds
Musculoskeletal: No Cyanosis, No Edema and Other (Left foot in bandages)
Skin: Warm and Dry
Neuro: AO x 3
Psych: Calm
--- NOTE | 2025-03-24 08:53 | PHA.VAN.FU ---
Vancomycin Assessment / Plan
- Assessment
Renal Function: Stable
WBC's are: WNL
In the past 24 hrs, patient has been: Afebrile
Concomitant Antimicrobials: Ampicillin/sulbactam
- Assessment - Therapeutic Drug Monitoring
Extrapolated Cmax (mcg/mL): 29.9
Peak level was drawn: More than 3 hours after previous dose (Dose given 03/23 at 1736, peak drawn 03/24 at midnight)
Extrapolated Cmin (mcg/mL): 13.6
Trough Drawn: Appropriately
Levels were drawn: At steady state
Calculated AUC (mcg*h/mL): 500
Calculated ke: 0.075
Calculated half life (H): 9.2
Calculated Vd (L): 80
Calculated Vanc CL (ml/min): 100
- Dosing Plan
Continue: Vancomycin 1500mg IV Q12
- Monitoring Plan
Level(s) appropriate: Recheck trough at minimum of weekly intervals, Repeat sooner for changes in renal function or clinical status
- Follow Up
Pharmacy will continue to follow.
Vancomycin Follow UP
- -
Patient Age: 49
Patient Sex: Male
Vancomycin Day #: 3
Indication: Skin And Soft Tissue
Requesting Provider: DR. JONES
Pertinent Antimicrobial Allergies:
no pertinent antibiotic allergies
Height / Weight:
Height 6 ft
Actual Weight 86.8 kg
Pertinent Past Medical History: DM
- Vital Signs / Lab Results
Temp Pulse Resp BP Pulse Ox
98.1 F 78 16 123/76 95
03/24/25 07:35 03/24/25 07:35 03/24/25 07:35 03/24/25 07:35 03/24/25 07:35
Lab Results - Hematology
03/21/25 03/22/25 03/23/25
22:01 06:48 07:28
WBC 13.6 H 10.4 7.7
03/24/25
05:37
WBC 8.2
Lab Results - Chemistry
03/21/25 03/22/25 03/23/25
22:01 06:48 07:28
BUN 26 H 17 10
Creatinine 1.2 0.8 0.6 L
Estimated Creat Clear > 125 > 125
Albumin 3.7 2.9 L
03/24/25
05:37
BUN 11
Creatinine 0.9
Estimated Creat Clear 111
Albumin
03/21/25
22:01
Lactic Acid 1.6
Microbiology Results
03/22/25 10:42 Wound Culture - Preliminary
Foot - Left S aureus-Methicillin Sensitive
Streptococcus agalactiae
Gram Stain - Preliminary
Therapeutic Drug Monitoring
Vancomycin Peak 20.6 ug/ml (18-26) 03/24/25 00:04
Vancomycin Trough 13.6 ug/ml (5-20) 03/24/25 05:36
[2025-03-24 11:37] LABS: Glucose - Point of Care 191 mg/dl (70-99)
--- NOTE | 2025-03-24 12:41 | W.PN.UPDATE ---
Update Note
Progress Note Update
I saw and evaluated the patient. I reviewed the resident�s note and agree with findings and plan as documented in the resident�s note.
No new complaints.
Gen: NAD, AAOx3.
Eyes: EOMI, PERRLA, no scleral icterus.
Neck: supple.
CV: RRR, +S1/S2, no m/r/g.
Resp: CTAB, no rales, wheezes, or rhonchi.
Abd: +BS, soft, NT, ND
Skin: No rashes.
Neuro: CN 2-12 intact, non-focal.
Psych: Normal mood and affect.
03/22/25 10:42 Foot - Left Wound Culture - Preliminary
S aureus-Methicillin Sensitive
Streptococcus agalactiae
03/22/25 10:42 Foot - Left Gram Stain - Preliminary
MRI L foot 03/23: There is subcutaneous edema at the level of the lateral midfoot with overlying soft tissue wound, suggesting cellulitis. No loculated fluid collections.
No overt MR evidence for osteomyelitis or septic arthritis.
Acute L diabetic foot infection:
-was on Vanco/Unasyn, now transitioned to Keflex for 10 further days
Tachycardia, chronic:
-sinus tachy
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
-Nadolol restarted
DM2:
-a1c 9.7%
-start Lantus 12U and premeal Novolog 4U
-over the next 24 hours monitor the total daily insulin requirement and recalculate tomorrow
-c/s special educator
Fe def anemia:
-start IV Fe while in the hospital and d/c on PO Fe
Essential HTN: cont Norvasc/Losartan
HLD: on Repatha
FULL/Lovenox
[2025-03-24] MEDS: NOVOLOG FLEXPEN 4 UNITS SC ×2 (12:56→17:09)
[2025-03-24] MEDS: NOVOLOG FLEXPEN-MODERATE RESISTANCE 1 UNITS SC (12:56)
[2025-03-24] MEDS: FERRLECIT 110 MG IV (14:17)
[2025-03-24] MEDS: KEFLEX 500 MG PO ×3 (14:17→21:00)
[2025-03-24 14:46] VITALS: BP 137/84; PULSE 87; O2SAT 98
[2025-03-24 15:38] VITALS: BP 140/88
[2025-03-24 16:47] LABS: Glucose - Point of Care 212 mg/dl (70-99)
[2025-03-24] MEDS: LOVENOX 40 MG SC (17:12)
[2025-03-24 21:31] LABS: Glucose - Point of Care 340 mg/dl (70-99)
[2025-03-24 23:29] VITALS: BP 143/92
[2025-03-25 07:12] VITALS: BP 137/86
[2025-03-25] MEDS: KEFLEX 500 MG PO ×2 (08:15→12:10)
[2025-03-25] MEDS: NORVASC 5 MG PO (08:16)
[2025-03-25] MEDS: CORGARD 20 MG PO (08:16)
[2025-03-25] MEDS: COZAAR 100 MG PO (08:17)
[2025-03-25 08:25] LABS: Hematocrit 33.1 % (39.0-52.0); Hemoglobin 10.9 g/dL (13.0-18.0); Mean Corp Hgb Conc. 32.9 g/dL (33.0-37.0); Mean Corpuscular Volume 83.8 fL (80.0-94.0); Platelet Count 452 10^3/uL (130-400); Red Cell Dist. Width 13.6 % (11.5-14.5)
--- NOTE | 2025-03-25 08:45 | W.PN.HOSP.TC ---
Today's Communication/Plan
-
Discharge on keflex 500 QID for 9 days (day one completed yesterday)
glargine 15 and aspart 6 AC and metformin 500 BID for diabeted management
Discharge with Oral Iron 65mg every other day
Assessment / Plan
Assessment / Plan
49-year-old male presenting to the ED with infected diabetic foot infection.
Imaging:
MRI 03/23/25:
There is subcutaneous edema at the level of the lateral midfoot with overlying soft tissue wound, suggesting cellulitis. No loculated fluid collections.
No overt MR evidence for osteomyelitis or septic arthritis.
Plan:
Diabetic foot infection
-- x-ray and MRI ruled out osteomyelitis
-- Cultures Staph aureus sensitive to keflex
-- Vancomycin and Unasyn per ID -> PO keflex 500mg QID for 10 days- day 09/02
-- Podiatry and ID appreciated
Type 2 diabetes
-- Adjust to glargine 12 daily, 4 aspart AC, and metformin 500 BID -> glargine 15 and aspart 6 AC
-- Diabetic DIRECTOR OF IT OPERATIONS and CM consult for insulin pricing -Lispro and Humalog are covered through patient's insurance.
-- Sliding scale insulin
-- On tirzepatide at home
-- Hemoglobin A1c 9.7
Tachycardia
-- Chronic tachycardia on nadolol for treatment - ran out 2 days ago
-- Restart home nadolol
Hypertension
-- Continue home amlodipine 5 and losartan 100
Hyperlipidemia
-- On Repatha
DVT Lovenox
Full code
Anticipated Discharge: Today
Subjective/Interval History
-
Date of Service: March 25, 2025
Overall feeling well and no complaints outside of the foot pain.
Objective Data
-
Labs:
Laboratory Results
03/25/25
07:58
WBC 7.1
Hgb 10.9 L
Hct 33.1 L
Plt Count 452 H
Sodium Pending
Potassium Pending
Chloride Pending
Carbon Dioxide Pending
BUN Pending
Creatinine Pending
Glucose Pending
Calcium Pending
Vital Signs:
Vital Signs
Temp Pulse Resp BP Pulse Ox
98.1 F 86 16 137/86 96
03/25/25 07:12 03/25/25 08:16 03/25/25 07:12 03/25/25 08:16 03/25/25 07:12
I&O
03/24/25 03/25/25 03/26/25
06:59 06:59 06:59
Intake Total 480 / 480 1740 / 1740
Output Total 2350 / 2350 3120 / 3120
Balance -1870 / -1870 -1380 / -1380
Review of Systems
-
History Source: Patient
EENT: Reports No Symptoms Reported
Respiratory: Reports No Symptoms
Cardiac: Reports No Symptoms
Abdomen/GI: Reports No Symptoms
Musculoskeletal: Reports Other (left foot pain )
Neuro: Reports No Symptoms
Physical Exam
-
General: No Apparent Distress and Comfortable
Respiratory: Clear to Auscultation
Cardiac: Regular Rhythm and S1/S2
GI: Soft, Nontender, Nondistended and Normal Bowel Sounds
Musculoskeletal: No Cyanosis, No Edema and Other (left foot in bandage )
Skin: Warm and Dry
Neuro: AO x 3
Psych: Calm
[2025-03-25 08:46] LABS: Glucose - Point of Care 175 mg/dl (70-99)
--- NOTE | 2025-03-25 08:57 | PN.DE.MGMTRT ---
Insulin Management
- -
03/25/2025 Diabetes Management Consult
Patient admitted 03/21 with l foot swelling and increased drainage. PMH Diabetes for 24 years, HTN HLD. Prior to admission was taking Mounjaro 15 mg weekly. A1C 9.7%, cr .9, eGFR > 60.
Patient is awake alert and oriented able to discuss diabetes care. States he used to take metformin but stopped. He take mounjaro on Fridays. He admits to eating between meals here, Twix, potato chips and drink with 36 grams of cho at bedside.
Glucose range 191 to 340.
Received lantus 12 units yesterday, will increase to 15 units, will increase AC novolog to 6 units, reduce corrective to low.
Discussed at length importance of diet. Patient has taken insulin in the past and has a [employer] CGM for glucose readings.
Discussed with nurse.
Will follow
Diabetes History
- -
Type of Diabetes: 2 requiring insulin
Pre-Admission Diabetes Regimen
Lab Results
Hemoglobin A1c 9.7 % (4.0-5.6) H 03/22/25 06:48
Insulin Pump Settings
IP Diabetes Regimen
03/24/25 03/24/25 03/24/25
11:36 16:46 21:29
POC Glucose 191 H 212 H 340 H
03/25/25
08:45
POC Glucose 175 H
Meal type: Lunch
Meal type: Breakfast
Amount consumed: 100%
Amount consumed: 80%
Patient Education
--- NOTE | 2025-03-25 09:05 | CON.SURG ---
Surgical Consultation
-
Chief Complaint / Past History
History of Present Illness
Juan Murry is a 49-year-old man with a significant past medical history of diabetes mellitus with neuropathy being evaluated regarding a left foot wound. History is obtained from chart review, along with patient interview.
The patient reports that he has had issues with foot wounds, and scaly skin in the past, and occasionally picks off the skin. Approximately 1-1/2 weeks ago he changed lotions to an OTC 'silver-cream' for moisturizing. He notes that approximately 2
days ago he developed a wound on the lateral aspect of his left foot (approximately base of fifth met), and it has been draining clear drainage. He notes mild discomfort, but does not feel a lot of pain secondary to underlying neuropathy. He
denies any significant pus or spreading erythema. He does admit to some left groin discomfort and swelling. He also notes he has been dealing with a right foot wound also. He follows with Podiatry at [facility] but has been seeing residents.
Patient notes that he has had intermittent wounds to bilateral feet but has never required surgical intervention for them
Past History
Additional Past Medical History:
DM with neuropathy (AcC ~ 8-9)
HTN
HLD
Additional Past Surgical History:
Right AC joint reconstruction
Testicular torsion
Femur surgery
Allergy History:
shellfish derived Allergy (Verified 03/21/25 21:45)
Tongue Swelling
Medications Reviewed: Yes
Current Antibiotics:
Unasyn 3 gm IV q.6 hours
Vancomycin
Social History
Tobacco: Non-Smoker
Alcohol: Occasional
Drug: None
Personal:
Living: With Family
Employment: Employed
Family History
Family History: Not Pertinent
Review of Systems
Vital Signs
Temp Pulse Resp BP Pulse Ox
98.8 F 79 16 129/76 97
03/22/25 09:20 03/22/25 09:24 03/22/25 09:20 03/22/25 09:24 03/22/25 09:20
Physical Exam
Physical Exam
Constitutional: No Acute Distress, Well Developed, Comfortable and Non-toxic
Head: Normocephalic
Eyes: Pupils Equal, Pupils Round, No Conjunctival Hemorrhage and Sclera Anicteric
Oral: No Thrush and No Ulcers
Cardiovascular: S1/S2; Negative S3/S4
Pulmonary: Clear; Negative Wheezes, Rales or Rhonchi
Gastrointestinal: Soft, Non Tender, Non Distended and Normal Bowel Sounds
Extremities: Other (B/L feet with crusting and superficial desquamation.); Negative Edema, Cyanosis or Erythema
Wound: Other (Left foot with lateral wound. Seropurulent drainage expressible. Right foot with lateral plantar wound with granulation tissue.)
Neurological: Awake and Alert
Psychological: Calm
LLE Exam
-DP/PT pulses 2/4, capillary refill < 3 seconds
-Left lateral foot wound with seropurulent drainage, negative probe to bone
-Wound bed fibrogranular without any crepitus or fluctuance
Lab / Diagnostic Study Results
03/22/25 06:48
03/22/25 06:48
Abs Immat Gran (auto) 0.1 10^3/uL (0-0.05) H 03/21/25 22:01
Absolute Neuts (auto) 9.8 10^3/uL (1.4-6.5) H 03/21/25 22:01
Absolute Lymphs (auto) 1.9 10^3/uL (1.2-3.4) 03/21/25 22:01
Absolute Monos (auto) 1.7 10^3/uL (0.1-0.6) H 03/21/25 22:01
Absolute Basos (auto) 0.1 10^3/uL (0-0.2) 03/21/25 22:01
Immature Gran % 0.4 % (0-0.5) 03/21/25 22:
Neutrophils % 71.9 % (42.2-75.2) 03/21/25 22:
Lymphocytes % 14.0 % (20.5-51.1) L 03/21/25 22:
Monocytes % 12.3 % (1.7-9.3) H 03/21/25 22:
Eosinophils % 1.0 % (0-6) 03/21/25 22:
Basophils % 0.4 % (0-2) 03/21/25 22:
ESR 83 mm/hour (0-20) H 03/22/25 06:48
Lactic Acid 1.6 mmol/L (0.7-2.0) 03/21/25 22:
Microbiology Results
Assessment / Plan
49 yo M with poorly controlled diabetes presents with draining left foot wound with infection
-Patient seen and evaluated at bedside, left lateral foot wound with skin and soft tissue infection. No evidence of deep infection
-MRI reviewed: IMPRESSION: There is subcutaneous edema at the level of the lateral midfoot with overlying soft tissue wound, suggesting cellulitis. No loculated fluid collections. No overt MR evidence for osteomyelitis or septic arthritis.
-HbA1c 9.2%, encouraged rigid glycemic control to optimize healing
-Continue IV antibiotics per ID recommendations
-Will continue to monitor
-Patient to follow up at [facility] outpatient podiatry clinic
[2025-03-25 09:40] LABS: Blood Urea Nitrogen 13 mg/dl (9-20); Calcium 9.5 mg/dl (8.4-10.2); Carbon Dioxide 28 mmol/L (22-30); Chloride 102 mmol/L (98-107); Estimated Creatinine Clearance > 125 ml/min; Glucose 175 mg/dl (70-99); Potassium 4.3 mmol/L (3.5-5.1); Sodium 137 mmol/L (135-145); eGFR > 60.00
[2025-03-25] MEDS: LANTUS SC (09:42)
[2025-03-25] MEDS: NOVOLOG FLEXPEN SC (09:42)
[2025-03-25] MEDS: GLUCOPHAGE 500 MG PO (09:47)
[2025-03-25] MEDS: LANTUS 0.15 UNITS SC (09:47)
[2025-03-25] MEDS: NOVOLOG FLEXPEN-MODERATE RESISTANCE 1 UNITS SC (09:48)
[2025-03-25] MEDS: NOVOLOG FLEXPEN 6 UNITS SC ×2 (09:48→12:08)
--- NOTE | 2025-03-25 10:17 | W.DCSUMMARY ---
Discharge Summary
Discharge Data
Date of Admission: 03/22/25
Date of Discharge: 03/25/25
-
Pending Results: No
Hospital Course
Primary diagnosis:
Left sided diabetic foot infection
Type 2 diabetes
Chronic tachycardia
Hypertension
Secondary diagnosis:
Hyperlipidemia
Hospital course:
49-year-old male came into the ED for further evaluation of his left foot infection. He started to notice some increase swelling, redness and purulent discharge over the 2 days prior. He is sister recommended for him to come in for further
evaluation. He was admitted for further workup for concerns of osteomyelitis and infectious disease and podiatry were consulted. He was started on vancomycin and zosyn later switched to unasyn. X-ray revealed no signs of osteomyelitis. Vascular
ultrasound revealed no DVT. Later MRI confirmed no signs of osteomyelitis. Wound culture came back for Staph aureus and Streptococcus agalactiae sensitive to Keflex. Patient started on a 10-day course of Keflex 500 mg 4 times daily. Adjustments
to his insulin were made as well started on glargine 15 units in the morning and 6 units of aspart before meals. He was also found to to have iron deficiency anemia and started on IV iron.
Today, patient is clinically stable for discharge. He is being discharged with Keflex 500 mg 4 times daily for 9 additional days (finished on 04/02/2025) and glargine 15 units in the morning and aspart 6 units before meals. He is also being
discharged on an iron supplement. Please follow-up with podiatry and endocrinology for further recommendations.
Imaging:
Foot x-ray 03/21/2025:
Soft tissue swelling of the lateral mid foot. No evidence of osteomyelitis.
Peripheral vascular ultrasound 03/22/2025:
No evidence of deep venous thrombosis in the bilateral lower extremities as described above.
Lower extremity MRI 03/23/2025:
There is subcutaneous edema at the level of the lateral midfoot with overlying soft tissue wound, suggesting cellulitis. No loculated fluid collections.
No overt MR evidence for osteomyelitis or septic arthritis.
Discharge Plan
-
Patient Disposition: Home (Routine Discharge)
Discharge Diagnosis/Procedures: Infected diabetic foot wound
Uncontrolled diabetes
Tachycardia
Hypertension
Hyperlipidemia
Condition: Good
Diet: Diabetic, Carb Controlled
Activity: As tolerated
Driving Restrictions: As prior to admission
Bathing Restrictions: None
Instructions: Diabetes and infections, Wound care - ED (DC)
Referrals:
UNKNOWN - PT DOES,NOT KNOW [Family Provider, Family Practice]
Referral Note: Please follow-up with PCP in next week
Additional Discharge Medication Instructions: Please follow-up with your brand advisor in the next week. Please also see your recyclable materials collector for better blood sugar control. Poor blood sugar control increases your risk of infection.
Please take cephalexin 4 times a day until 04/02/25 (10 days of cephalexin total started on 03/24/25)
Prescriptions:
New
nadolol 20 mg Tablet
20 mg PO DAILY Qty: 30 0RF
metformin 500 mg Tablet
500 mg PO BID@0800,1700 Qty: 60 0RF
ferrous sulfate 325 mg (65 mg iron) tablet
325 mg PO Q OTHER DAY Qty: 30 0RF
cephalexin 500 mg Capsule
500 mg PO QID 9 Days Qty: 36 0RF
insulin glargine [Basaglar KwikPen U-100 Insulin] 100 unit/mL (3 mL) insulin pen
15 unit SC DAILY 30 Days Qty: 4.5 0RF
Humalog U-100 Insulin 100 unit/mL cartridge
6 unit SC TID 30 Days Qty: 5.4 0RF
Continued
amlodipine 5 mg Tablet
5 mg PO DAILY
oxycodone-acetaminophen [Percocet] 5-325 mg Tablet
1 tab PO TID
losartan 100 mg Tablet
100 mg PO DAILY
Repatha Syringe 140 mg/mL Syringe
120 mg SC Q2W
Patient Comments:
The patient did show this RN the text from [employer].
Mounjaro 15 mg/0.5 mL Pen Injector
15 mg SC QWEEK
Discharge Orders:
Discharge Patient (As Directed); Ordered 03/25/25
Ordered By: Froilan Pierce
Discharge Date and Time
Print Language: SCOTTISH
--- NOTE | 2025-03-25 10:21 | W.PN.UPDATE ---
Update Note
Progress Note Update
I saw and evaluated the patient. I reviewed the resident�s note and agree with findings and plan as documented in the resident�s note.
No new complaints.
Gen: NAD, AAOx3.
Eyes: EOMI, PERRLA, no scleral icterus.
Neck: supple.
CV: Remains RRR, +S1/S2, no m/r/g.
Resp: Remains CTAB, no rales, wheezes, or rhonchi.
Abd: Remains +BS, soft, NT, ND
Skin: No rashes.
Neuro: CN 2-12 intact, non-focal.
Psych: Normal mood and affect.
03/22/25 10:42 Foot - Left Wound Culture - Preliminary
S aureus-Methicillin Sensitive
Streptococcus agalactiae
03/22/25 10:42 Foot - Left Gram Stain - Preliminary
MRI L foot 03/23: There is subcutaneous edema at the level of the lateral midfoot with overlying soft tissue wound, suggesting cellulitis. No loculated fluid collections.
No overt MR evidence for osteomyelitis or septic arthritis.
Acute L diabetic foot infection:
-was on Vanco/Unasyn, now transitioned to Keflex for 10 further days
Tachycardia, chronic:
-sinus tachy
-ran out of meds 2 days BRAILLE TYPIST
-Nadolol restarted
DM2:
-a1c 9.7%
-appreciate diabetes FILLING WINDER
-increase Lantus to 15U and premeal Novolog to 6U
Fe def anemia:
-cont IV Fe while in the hospital and d/c on PO Fe
Essential HTN: cont Norvasc/Losartan
HLD: on Repatha
FULL/Lovenox
Total time spent on d/c = 31 min. This included today's physical exam, progress note, review of laboratory and diagnostic data, preparation of discharge documents and prescriptions, and discussions about the pt's hospital course and discharge plan
with the patient and other medical assembly involved in the patient's care.
--- NOTE | 2025-03-25 11:21 | WOUNDNOTE ---
LEFT LATERAL FOOT
--- NOTE | 2025-03-25 11:22 | WOUNDNOTE ---
LEFT LATERAL FOOT
--- NOTE | 2025-03-25 11:22 | WOUNDNOTE ---
RIGHT LATERAL FOOT
--- NOTE | 2025-03-25 11:25 | WOUNDNOTE ---
[facility] RN note: Patient admitted with diabetic foot ulcers and cellulitis.
See H&P for complete history.
PMH: This is a [id number]-[id number] male with past medical history significant for insulin-dependent diabetes on Mounjaro and short acting insulin, hypertension, hyperlipidemia and chronic tachycardia syndrome who presents to the emergency department
with swelling in the left foot concerning for an infection.
Wound Location and type/assessment: Patient admitted with: L lateral plantar foot soft tissue diabetic ulcer. MRI negative for Osteomyelitis. Wound culture + strep, I&D following. Patient using Silvadene at home to open ulcers and tends to pick at
his calluses. Skin on both plantar feet very dry with cracked skin. R plantar lateral foot with partial thickness diabetic ulcers, base pink. Patient reports he was playing with kids in yard and was barefoot, then noticed wound on L foot. HgbA1c is
9.2, reviewed Dr. Alejo's report, patient to follow up with [facility] clinic. + pedal pulses palpable in both feet and heels intact.
Appetite: Good.
Pressure redistribution devices in place: Accumax, wears cloud walker sneakers with moldable inserts reports patient.
Plan: Local wound care applied, recommend continue Silvadene and dry dressing at home. Instructed patient to wear socks and sneakers when walking, not to be barefoot. Patient states he understands.
Will confirm orders with hospitalist and updated nurse Singer. Updated care plan and will follow as needed.
Note to case management of equipment requested for discharge: None.
[2025-03-25 11:45] VITALS: BP 155/90
[2025-03-25 12:05] LABS: Glucose - Point of Care 116 mg/dl (70-99)
[2025-03-25] MEDS: NOVOLOG FLEXPEN-MODERATE RESISTANCE SC (12:06)
--- NOTE | 2025-03-25 12:35 | CM ---
Pt lives in 2 story home with and 2 children, Zero steps at entrance to the home. NO hx of HC, VN or SNF. Verified PCP, Rx , insurance, and drug coverage, Independent at home with ADLS and IADLs. Pt agrees to VN service with [facility]. Referral sent for wound care 2-3x/week.
Spouse is an [employer]
Pt disharged today. Able to drive himself home,
Plan: Home with home health for wound care and dressing changes
PCP - Rios Hernandez
RX- Jaclyn [address]
--- NOTE | 2025-03-25 13:17 | CM ---
Addendum entered by Fara You 03/25/25 15:59:
Pt was denied by [facility] due not being home bound. Pt made aware of denials. Pt instructed to follow up with dr as stated in his discharge instructions
Addendum entered by Fara You 03/25/25 13:56:
[facility] location was denied for VN. Bebeto Duran stated that [facility], an non-[place] location would accept this pt if the patient agrees to have Visiting Nurse from another location. Referral done.
Called patient his cell phone [phone] about declination of [facility] location. Pt is agreeable to a new locication
Plan_ Home with [facility] VN.
Original Note:
Pt does not wish to wait for outcome of VN referral. CM will call pt on his cell phone once a response has been received.
--- NOTE | 2025-03-26 09:03 | PN.CDI ---
Addendum entered and electronically signed by Madison Torres MD, Resident 03/26/25 09:59:
Patient has chronic tachycardia on nadalol which he ran out of two days prior so he came in tachy. Sepsis ruled out.
Original Note:
CDI
- -
CDI:
Physician Documentation Request
Admit Date: 03/22/25 02:05
Dear Doctor Melissa,
Patient admitted for diabetic foot infection.
Laboratory Tests
03/21/25
22:01
WBC 13.6 H
03/22/25
00:08 03/22/25
00:45 03/22/25
01:30
Pulse 118 118 121
03/22/25
00:15 03/22/25
01:15 03/22/25
03:30
Resp Rate 24 23 25
Please clarify which of the following most accurately describes the status of the patient's infection:
Sepsis, POA
- Systemic manifestations of infection, with 2 or more SIRS criteria which include:
- Fever >100.9 degrees F or hypothermia < 96.8 degrees F
- Leukocytosis - WBC > 12,000 or leukopenia - WBC < 4,000 or > 10% bands
- Tachycardia > 90 beats per minute
- Tachypnea - RR > 20 breaths per minute or PaCO2 , 32mmHg
Source: Merck Manual 2013
Localized Infection Only, Without Systemic Illness
- indicate the site/source, such as UTI, pneumonia etc.
Other
Use of terms such as suspected, likely, concern for, or probable (associated with a specific diagnosis that is being evaluated, monitored, or treated as if it exists) are acceptable and can be coded in the inpatient setting, when documented at the
time of discharge.
Thank you,
Cheri Graham RN, BSN
CDI Specialist
Available via [place] text
Please use your independent medical judgment in providing your response.
== END 2025-03-25 13:44 | disposition home health service (06) | DRG 638 ==
LOC: 4 WEST ACU 02:05
PROVIDERS: Emergency Medicine; ADMITTING PHYSICIAN Internal Medicine; ATTENDING PHYSICIAN Internal Medicine; CONSULT PHYSICIAN Internal Medicine Infectious Disease; CONSULT PHYSICIAN Student in an Organized Health Care Education/Training Program; EMERGENCY PHYSICIAN Emergency Medicine
DX: E11.621 Type 2 diabetes mellitus with foot ulcer (principal); L03.116 Cellulitis of left lower limb; L97.429 Non-pressure chronic ulcer of left heel and midfoot with unspecified severity; E11.40 Type 2 diabetes mellitus with diabetic neuropathy, unspecified; E11.628 Type 2 diabetes mellitus with other skin complications; E11.65 Type 2 diabetes mellitus with hyperglycemia; I10 Essential (primary) hypertension; E78.00 Pure hypercholesterolemia, unspecified; D50.9 Iron deficiency anemia, unspecified; F17.200 Nicotine dependence, unspecified, uncomplicated; E88.09 Other disorders of plasma-protein metabolism, not elsewhere classified; M79.89 Other specified soft tissue disorders; T44.7X6A Underdosing of beta-adrenoreceptor antagonists, initial encounter; Z91.148 Patient's other noncompliance with medication regimen for other reason; Y92.9 Unspecified place or not applicable; Z79.4 Long term (current) use of insulin; Z91.013 Allergy to seafood
CPT/HCPCS: 73630; 73720; 80048; 80053; 80202; 82306; 82607; 82728; 82962; 83036; 83540; 83550; 83605; 85025; 85027; 85379; 85652; 87070; 87077; 87147; 87186; 87205; 93970; 96361; 96365; 96366; 96367; 97162; 97165; 99285; A9575; J2916